=== PATIENT | female | born 1990 | race African-American/Black ===

== ENCOUNTER 2018-05-21 22:09 | Emergency (ER) | payer OTHER ==
[~2018-05-21] VITALS: Ht 167.6 cm; Wt 119.7 kg
[2018-05-21 22:20] VITALS: BP 122/77
--- NOTE | 2018-05-21 22:22 | Emergency Room Report ---
History of Present Illness General Chief Complaint: Asthma Source: Patient Present Illness HPI Patient ran out of her inhaler 3 days ago. Since that time she's been wheezing and coughing. She denies any productive phlegm or fevers or chills. There's no chest pain. She states this is not the worst attack that she's had. She has taken prednisone in the past. Patient denies NVD, dysuria, rashes, headache, neck pain, joint pain, anxiety. Allergies: Coded Allergies: No Known Allergies (Unverified , 05/21/18) Patient History Past Medical History: see triage record Social History: Denies: smoking Social History Narrative from home Last Menstrual Period: 05/11/2018 Now: No : 0 Para: 0 Reviewed Nursing Documentation: PMH: Agreed; PSxH: Agreed Nursing Documentation-PMH Past Medical History: No History, Except For Hx Asthma: Yes Review of Systems All Other Systems: negative except mentioned in HPI Physical Exam Vital Signs Date Time Temp Pulse Resp B/P (MAP) Pulse Ox O2 Delivery O2 Flow Rate FiO2 05/21/18 22:14 97.9 74 16 122/77 97 97.9 Sp02 EP Interpretation: reviewed, normal General Appearance: well appearing, no apparent distress, GCS 15 Head: normocephalic Eyes: bilateral eye normal inspection, bilateral eye PERRL ENT: moist mucus membranes Neck: supple Respiratory: wheezing, expiration, inspiration Cardiovascular #1: regular rate, rhythm Cardiovascular #2: 2+ radial (R) Gastrointestinal: normal inspection, normal bowel sounds, non tender, no mass, non-distended Musculoskeletal: back normal, gait/station normal, normal range of motion, no calf tenderness Neurologic: alert, oriented x3 Psychiatric: mood/affect normal Skin: normal inspection, warm/dry Medical Decision Making Diagnostic Impression: Primary Impression: Asthma Qualified Codes: J45.41 - Moderate persistent asthma with (acute) exacerbation ER Course Patient presents with wheezing. Differential includes asthma exacerbation, upper respiratory infection. Her exam is against this being pneumonia. She'll be treated with breathing treatments and prednisone reevaluated. At this time x -rays are not indicated however she needs to have reevaluation. After one breathing treatment the patient is clear. Three had been ordered however she refused and it's not necessary at this time. Discussed with patient treatment plan. Patient stable for outpatient observation and treatment. Rhythm Strip Diag. Results EP Interpretation: yes Rhythm: NSR, no PVC's, no ectopy Last Vital Signs Date Time Temp Pulse Resp B/P (MAP) Pulse Ox O2 Delivery O2 Flow Rate FiO2 05/21/18 23:27 97.4 84 18 128/79 97 Room Air 21 97.4 Status: improved Disposition: HOME, SELF-CARE Condition: Improved Scripts Beclomethasone Dipropionate 40MCG Oral Inh (QVAR 40*) 7.3 Gm Aer.w.adap 2 PUFFS INH TWICE A DAY, #1 GM 0 Refills Prov: Barrno Francois M.D. 05/21/18 Prednisone* (PREDNISONE*) 20 Mg Tablet 40 MG ORAL DAILY, #6 TAB Prov: Barron Francois M.D. 05/21/18 Albuterol Sulfate* (ALBUTEROL SULFATE MDI*) 8.5 Gm Hfa.aer.ad 2 PUFF INH Q6H, #1 EA 1 Refill Prov: Barron Francois M.D. 05/21/18 Barron Francois M.D. May 21, 2018 22:22
[2018-05-21] MEDS ORDERED: Albuterol ud Inhalation HHN SCH (22:30)
[2018-05-21] MEDS ORDERED: Ipratropium 0.02% Inh Soln 2.5ml UD HHN ONE (22:30)
[2018-05-21] MEDS ORDERED: QVAR7.3 GM INH (23:08)
[2018-05-21] MEDS ORDERED: PREDNISONE20 MG ORAL (23:08)
[2018-05-21] MEDS ORDERED: ALBUTEROL SULF8.5 GM INH (23:08)
[2018-05-21 23:23] VITALS: BP 128/79
[2018-05-21 23:27] VITALS: BP 128/79
== END 2018-05-21 23:33 | disposition home or self-care (01) ==
LOC: EMR 22:48
DX: J45.41 Moderate persistent asthma with (acute) exacerbation (principal)
CPT/HCPCS: 94640; 94664; 99284; J7512

== ENCOUNTER 2018-06-29 22:13 | Emergency (ER) | payer OTHER ==
[~2018-06-29] VITALS: Ht 175.3 cm; Wt 90.7 kg
[~2018-06-29 22:13] MED LIST: ALBUTEROL SULF8.5 GM INH; PREDNISONE20 MG ORAL; QVAR7.3 GM INH
[2018-06-29 22:30] VITALS: BP 144/78
[2018-06-29] MEDS ORDERED: Albuterol ud Inhalation HHN ONE ×2 (22:30→23:30)
[2018-06-29] MEDS ORDERED: Ipratropium 0.02% Inh Soln 2.5ml UD HHN ONE (22:30)
--- NOTE | 2018-06-29 22:59 | Emergency Room Report ---
History of Present Illness General Chief Complaint: Dyspnea/Respdistress Source: Patient Present Illness HPI Is a 28-year-old female with a history of asthma. She presents with chief complaint of asthma exacerbation. Onset today. Hard time breathing. Her albuterol not helping. No fever chills but no nausea no vomiting. Worse with walking. Worse with inspiration. Coughing but nonproductive in nature. Allergies: Coded Allergies: No Known Allergies (Unverified , 05/21/18) Patient History Past Medical History: see triage record, old chart reviewed, asthma Past Surgical History: none Pertinent Family History: none Social History: Denies: smoking Last Menstrual Period: n/a Now: No Immunizations: other Reviewed Nursing Documentation: PMH: Agreed; PSxH: Agreed Nursing Documentation-PMH Past Medical History: No History, Except For Hx Asthma: Yes Review of Systems Eye: Denies: eye pain, blurred vision ENT: Denies: ear pain, nose congestion, throat swelling Respiratory: Reports: cough, shortness of breath, wheezing Cardiovascular: Denies: chest pain, palpitations Gastrointestinal: Denies: abdominal pain, diarrhea, nausea, vomiting Musculoskeletal: Denies: back pain, joint pain Skin: Denies: rash Neurological: Denies: headache, numbness Endocrine: Denies: increased thirst, increased urine Hematologic/Lymphatic: Denies: easy bruising All Other Systems: negative except mentioned in HPI Physical Exam Vital Signs Date Time Temp Pulse Resp B/P (MAP) Pulse Ox O2 Delivery O2 Flow Rate FiO2 06/29/18 22:29 26 100 Simple Mask 4.0 06/29/18 22:30 84 21 vitals unremarkable Sp02 EP Interpretation: reviewed, normal General Appearance: well appearing, alert, moderate distress Head: normocephalic, atraumatic Eyes: bilateral eye PERRL, bilateral eye EOMI ENT: hearing grossly normal, normal pharynx Neck: full range of motion, supple, no meningismus Respiratory: chest non-tender, respiratory distress, decreased breath sounds, accessory muscle use, wheezing Cardiovascular #1: regular rate, rhythm, no murmur Gastrointestinal: normal bowel sounds, non tender, no mass, no organomegaly, no bruit, non-distended Musculoskeletal: back normal, gait/station normal, normal range of motion Psychiatric: mood/affect normal Skin: warm/dry Medical Decision Making Diagnostic Impression: Primary Impression: Asthma with acute exacerbation Qualified Codes: J45.901 - Unspecified asthma with (acute) exacerbation ER Course Patient presents with asthma exacerbation. Initially she was tight and after one treatment she opened up and was wheezing more. After pretreatment, wheezing resolved. She also received prednisone here and also magnesium sulfate. She felt much better. We'll discharge home. X-rays negative for infection Rhythm Strip Diag. Results EP Interpretation: yes Rate: 98 Rhythm: NSR, no PVC's, no ectopy Chest X-Ray Diagnostic Results Chest X-Ray Diagnostic Results : Chest X-Ray Ordered: Yes # of Views/Limited/Complete: 1 View Indication: Shortness of Breath EP Interpretation: Yes Interpretation: no consolidation, no effusion, no pneumothorax, no acute cardiopulmonary disease Impression: No acute disease Electronically Signed by: Alexys Bullard MD Last Vital Signs Date Time Temp Pulse Resp B/P (MAP) Pulse Ox O2 Delivery O2 Flow Rate FiO2 06/29/18 22:39 88 20 99 Room Air 21 06/29/18 22:29 4.0 Status: improved Disposition: HOME, SELF-CARE Condition: Stable Scripts Prednisone* (PREDNISONE*) 20 Mg Tablet 40 MG ORAL DAILY, #8 TAB Prov: Alexys Bullard MD 06/30/18 Albuterol Sulfate* (ALBUTEROL SULFATE MDI*) 8.5 Gm Hfa.aer.ad 2 PUFF INH Q4H PRN for cough/wheezing, #1 EA 0 Refills Prov: Alexys Bullard MD 06/30/18 Additional Instructions: Follow-up with your DrUrsula in 2 to 3 days. Return if symptom worsen. Alexys Bullard MD Jun 29, 2018 22:59
[2018-06-30 01:13] LABS: BASOPHILS % (AUTO) 0.8 % (0.0-2.0); HEMOGLOBIN 12.6 G/DL (12.0-16.0); LYMPHOCYTES % (AUTO) 11.2 % (20.0-45.0); MEAN CORPUSCULAR VOLUME 93 FL (80-99); MONOCYTES % (AUTO) 6.2 % (1.0-10.0); PLATELET COUNT 258 K/UL (150-450); WHITE BLOOD COUNT 11.3 K/UL (4.8-10.8)
[2018-06-30 01:22] LABS: ANION GAP 9 mmol/L (5-15); BLOOD UREA NITROGEN 13 mg/dL (7-18); CALCIUM 8.9 MG/DL (8.5-10.1); CARBON DIOXIDE 27 MMOL/L (21-32); CHLORIDE 105 MMOL/L (98-107); POTASSIUM 3.2 MMOL/L (3.5-5.1); SODIUM 141 MMOL/L (136-145)
[2018-06-30] MEDS ORDERED: Albuterol ud Inhalation HHN ONE (01:45)
[2018-06-30] MEDS ORDERED: PREDNISONE20 MG ORAL (02:33)
[2018-06-30] MEDS ORDERED: ALBUTEROL SULF8.5 GM INH (02:33)
[2018-06-30 03:05] VITALS: BP 125/61
--- NOTE | 2018-06-30 12:52 | Diagnostic Imaging Report ---
Indication: Shortness of breath Technique: XRAY Chest 1v Comparison: None Findings: Heart size and mediastinal contours are within normal limits for AP technique. There is no focal consolidation, pneumothorax or pleural effusion. Osseous structures demonstrate no acute abnormality. Impression: No radiographic evidence of acute cardiopulmonary disease.
== END 2018-06-30 03:05 | disposition home or self-care (01) ==
LOC: EMR 23:10
DX: J45.901 Unspecified asthma with (acute) exacerbation (principal)
CPT/HCPCS: 36415; 71045; 80048; 85025; 94640; 94664; 99284; J7512

== ENCOUNTER 2019-07-02 07:06 | Emergency (ER) | payer OTHER ==
[~2019-07-02] VITALS: Ht 167.6 cm; Wt 119.3 kg
[2019-07-02 07:29] VITALS: BP 129/90
--- NOTE | 2019-07-02 07:29 | NUR ---
bdED Nurse Note: Pt aaox4, vss, no acute distress. Pt states pain is 10/10 in her upper ABD. No skin issues. Pt is cooperative other then refusing to give urine sample. MD with PT. Hypoactive bowel sounds. Pt c/o n/v with clear and yellow vomit.
--- NOTE | 2019-07-02 07:35 | Emergency Room Report ---
History of Present Illness General Chief Complaint: Abdominal Pain Source: Patient, Medical Record Present Illness HPI Patient presents with complaints of epigastric and right upper quadrant abdominal pain reports that she was at another hospital yesterday after receiving an injection [place] better Does not recall what she was told regarding the pain or what the source of the pain was she reports that earlier today she ate and after eating again the pain worsened denies any fevers or chills denies any chest pain patient is tearful and crying at bedside However able to provide appropriate history at this time denies any diarrhea denies any lower abdominal pain denies any rash Allergies: Coded Allergies: No Known Allergies (Unverified , 05/21/18) Patient History Past Medical History: see triage record Last Menstrual Period: 06/16/2019 Reviewed Nursing Documentation: PMH: Agreed; PSxH: Agreed Nursing Documentation-PMH Past Medical History: No History, Except For Hx Asthma: Yes Review of Systems All Other Systems: negative except mentioned in HPI Physical Exam Vital Signs Date Time Temp Pulse Resp B/P (MAP) Pulse Ox O2 Delivery O2 Flow Rate FiO2 07/02/19 07:21 98.1 70 16 133/78 (96) 96 Room Air Sp02 EP Interpretation: reviewed, normal General Appearance: mild distress - Tearful Head: normocephalic, atraumatic Eyes: bilateral eye PERRL, bilateral eye EOMI ENT: hearing grossly normal, EOM grossly intact Neck: supple Respiratory: lungs clear, no respiratory distress, no retraction Cardiovascular #1: regular rate, rhythm Gastrointestinal: non tender - On palpation however subjectively points to right upper quadrant, soft Genitourinary: no CVA tenderness Musculoskeletal: normal inspection Neurologic: alert Skin: no rash Lymphatic: normal inspection Medical Decision Making Diagnostic Impression: Primary Impression: Abdominal pain ER Course With the history exam and presentation, multiple differentials considered, including but not limited to appendicitis, gastritis, cholecystitis, diverticulitis Patient's blood work at baseline levels patient was initially provided oral medication and IM injection However continued to be tearful and complains of pain Therefore patient was provided with IM injection of Dilaudid and CT imaging was initiated CT imaging is also normal at repeat evaluation patient is now At baseline status has resolved completely with any discomfort At the time of disposition patient reports that she needs [place] [facility] [place] She is instructed that she is not allowed to drive Labs Test 07/02/19 08:01 07/02/19 09:25 White Blood Count 7.6 K/UL (4.8-10.8) Red Blood Count 4.41 M/UL (4.20-5.40) Hemoglobin 14.0 G/DL (12.0-16.0) Hematocrit 40.9 % (37.0-47.0) Mean Corpuscular Volume 93 FL (80-99) Mean Corpuscular Hemoglobin 31.9 PG (27.0-31.0) Mean Corpuscular Hemoglobin Concent 34.3 G/DL (32.0-36.0) Red Cell Distribution Width 12.5 % (11.6-14.8) Platelet Count 314 K/UL (150-450) Mean Platelet Volume 5.8 FL (6.5-10.1) Neutrophils (%) (Auto) 75.0 % (45.0-75.0) Lymphocytes (%) (Auto) 17.6 % (20.0-45.0) Monocytes (%) (Auto) 5.8 % (1.0-10.0) Eosinophils (%) (Auto) 0.5 % (0.0-3.0) Basophils (%) (Auto) 1.1 % (0.0-2.0) Sodium Level 138 MMOL/L (136-145) Potassium Level 3.7 MMOL/L (3.5-5.1) Chloride Level 103 MMOL/L (98-107) Carbon Dioxide Level 29 MMOL/L (21-32) Anion Gap 6 mmol/L (5-15) Blood Urea Nitrogen 13 mg/dL (7-18) Creatinine 1.1 MG/DL (0.55-1.30) Estimat Glomerular Filtration Rate > 60 mL/min (>60) Glucose Level 100 MG/DL (74-106) Calcium Level 9.1 MG/DL (8.5-10.1) Total Bilirubin 0.5 MG/DL (0.2-1.0) Aspartate Amino Transf (AST/SGOT) 19 U/L (15-37) Alanine Aminotransferase (ALT/SGPT) 22 U/L (12-78) Alkaline Phosphatase 74 U/L (46-116) Total Protein 8.2 G/DL (6.4-8.2) Albumin 4.0 G/DL (3.4-5.0) Globulin 4.2 g/dL Albumin/Globulin Ratio 1.0 (1.0-2.7) Lipase 64 U/L (73-393) Urine HCG, Qualitative Negative (NEGATIVE) Urine Opiates Screen Negative (NEGATIVE) Urine Barbiturates Screen Negative (NEGATIVE) Phencyclidine (PCP) Screen Negative (NEGATIVE) Urine Amphetamines Screen Negative (NEGATIVE) Urine Benzodiazepines Screen Negative (NEGATIVE) Urine Cocaine Screen Negative (NEGATIVE) Urine Marijuana (THC) Screen Positive (NEGATIVE) CT/MRI/US Diagnostic Results CT/MRI/US Diagnostic Results : Impression CT abdomen pelvisImpression: Limited assessment of the GI tract, due to lack of enteric contrast administration No acute or significant abnormality demonstrated Last Vital Signs Date Time Temp Pulse Resp B/P (MAP) Pulse Ox O2 Delivery O2 Flow Rate FiO2 07/02/19 07:21 98.1 70 16 133/78 (96) 96 Room Air Status: improved Disposition: HOME, SELF-CARE Condition: Improved Scripts Acetaminophen (Tylenol) 325 Mg Tablet 325 MG ORAL Q8HR PRN for Prn Pain/Headache/Temp > 101, #15 TAB 0 Refills Prov: Marta Mancini DO 07/02/19 Famotidine* (Pepcid 20mg tablet*) 20 Mg Tablet 20 MG ORAL DAILY, #15 TAB 0 Refills Prov: Marta Mancini DO 07/02/19 Referrals: NON PHYSICIAN (PCP) Additional Instructions: Patient is provided with the discharge instructions notified to follow up with primary doctor in the next 2-3 days otherwise return to the er with any worsening symptoms. Please note that this report is being documented using [employer]. This can lead to erroneous entry secondary to incorrect interpretation by the dictating instrument. Marta Mancini DO Jul 02, 2019 07:35
[2019-07-02] MEDS ORDERED: HYDROcodone/Acetamin 10/325 tab ORAL ONE (07:45)
--- NOTE | 2019-07-02 07:57 | NUR ---
ED Nurse Note: Pt ambulated to the bathroom. Pt refuses to provide urine.
--- NOTE | 2019-07-02 08:10 | NUR ---
ED Nurse Note: Bloodwork set to lab.
[2019-07-02] MEDS ORDERED: Ketorolac 60mg Inj IM ONE (08:30)
[2019-07-02] MEDS ORDERED: LORazepam 1mg tab ORAL ONE (08:30)
[2019-07-02 08:33] VITALS: BP 111/90
--- NOTE | 2019-07-02 08:36 | NUR ---
ED Nurse Note: Pt is restless and yelling 'help me! help me!" and "ouch". Pt is alert and asking for her breathing tx.
[2019-07-02 08:42] LABS: ANION GAP 6 mmol/L (5-15); BLOOD UREA NITROGEN 13 mg/dL (7-18); CALCIUM 9.1 MG/DL (8.5-10.1); CARBON DIOXIDE 29 MMOL/L (21-32); CHLORIDE 103 MMOL/L (98-107); CREATININE 1.1 MG/DL (0.55-1.30); POTASSIUM 3.7 MMOL/L (3.5-5.1); SODIUM 138 MMOL/L (136-145)
--- NOTE | 2019-07-02 08:44 | NUR ---
ED Nurse Note: RT called.
[2019-07-02] MEDS ORDERED: Albuterol ud Inhalation HHN ONE (08:45)
[2019-07-02 08:46] LABS: ALANINE AMINOTRANSFERASE 22 U/L (12-78); ALKALINE PHOSPHATASE 74 U/L (46-116); ASPARTATE AMINO TRANSFERASE 19 U/L (15-37); BILIRUBIN,TOTAL 0.5 MG/DL (0.2-1.0)
[2019-07-02 08:56] LABS: BASOPHILS % (AUTO) 1.1 % (0.0-2.0); EOSINOPHILS % (AUTO) 0.5 % (0.0-3.0); HEMATOCRIT 40.9 % (37.0-47.0); LYMPHOCYTES % (AUTO) 17.6 % (20.0-45.0); MEAN CORPUSCULAR VOLUME 93 FL (80-99); MONOCYTES % (AUTO) 5.8 % (1.0-10.0); PLATELET COUNT 314 K/UL (150-450); RED BLOOD COUNT 4.41 M/UL (4.20-5.40); RED CELL DISTRIBUTION WIDTH 12.5 % (11.6-14.8); WHITE BLOOD COUNT 7.6 K/UL (4.8-10.8)
--- NOTE | 2019-07-02 09:02 | NUR ---
RESPIRATORY NOTE: administered breathing tx, pt removed tx and stated "i dont want it, my stomach hurts too much. i cannot concentrate" RN made aware.
[2019-07-02] MEDS ORDERED: HYDROmorphone 1mg/ml Carpuject IM ONE (09:15)
--- NOTE | 2019-07-02 09:16 | NUR ---
ED Nurse Note:pt. c/o of increasing abdominal pain, was given pain med IM and moved to private room
--- NOTE | 2019-07-02 09:50 | NUR ---
ED Nurse Note:pt. had abdominal CT done and urine was sent to labs
--- NOTE | 2019-07-02 10:02 | Diagnostic Imaging Report ---
Indication: Abdominal pain, epigastric and right upper quadrant pain Technique: Spiral acquisitions obtained through the abdomen and pelvis. No oral contrast utilized, per emergency room physician request No IV contrast utilized, per referring physician request.. Multiplanar reconstructions were generated. Total dose length product 1310 mGycm. CTDIvol(s) 23 mGy. Dose reduction achieved using automated exposure control Comparison: None Findings: There is slight image degradation due to image noise related to patient body habitus. Lack of enteric contrast limits assessment of the GI tract. The appendix is normal. Is no evidence of colonic diverticulosis or diverticulitis. No small bowel distention. No free or loculated intraperitoneal gas or fluid. Distal esophagus, stomach, duodenum are unremarkable. Lack of IV contrast limits assessment of the solid organs. The liver, gallbladder, bile ducts, pancreas, spleen, adrenals, kidneys are unremarkable. No retroperitoneal or mesenteric mass or adenopathy. No pelvic mass or adenopathy. Uterus and ovaries are unremarkable. The included lung bases are clear. The bones are unremarkable. Impression: Limited assessment of the GI tract, due to lack of enteric contrast administration No acute or significant abnormality demonstrated The CT scanner at [facility] is accredited by the [employer] and the scans are performed using protocols designed to limit radiation exposure to as low as reasonably achievable to attain images of sufficient resolution adequate for diagnostic evaluation.
[2019-07-02 10:20] VITALS: BP 115/88
[2019-07-02] MEDS ORDERED: TYLENOL325 MG ORAL (10:24)
[2019-07-02] MEDS ORDERED: FAMOTIDINE20 MG ORAL (10:24)
[2019-07-02 10:30] VITALS: BP 115/88
--- NOTE | 2019-07-02 10:30 | NUR ---
ER DISCHARGE NOTE: Patient is cleared to be discharged per ERMD, pt is aox4, on room air, with stable vital signs. pt was given dc and prescription instructions, pt was able to verbalize understanding. pt is able to ambulate with steady gait. pt took all belongings.
== END 2019-07-02 10:30 | disposition home or self-care (01) ==
LOC: EMR 07:28
DX: R10.13 Epigastric pain (principal); R10.11 Right upper quadrant pain
CPT/HCPCS: 36415; 74176; 80053; 80307; 81025; 83690; 85025; 94640; 94664; 96372; J1170; Z7502; 99284

== ENCOUNTER 2019-07-06 10:29 | Emergency (ER) | payer OTHER ==
[~2019-07-06] VITALS: Ht 167.6 cm; Wt 117.9 kg
[~2019-07-06 10:29] MED LIST changes: +FAMOTIDINE20 MG ORAL; +TYLENOL325 MG ORAL
[2019-07-06 10:40] VITALS: BP 136/61
--- NOTE | 2019-07-06 10:40 | NUR ---
ED Nurse Note: Patient ambulated to the ER with a c/o of epigastric pain x 1 week with n/v and no diarrhea. Patient has a pain score of 10/10. patient facial grimacing, and holding the site. Patient AAOx4, No respiratory distress noted.
--- NOTE | 2019-07-06 10:50 | NUR ---
ED Nurse Note: Patient connected to the monitor worker. Patient refused to be on the blood pressure cuff.
--- NOTE | 2019-07-06 11:01 | NUR ---
ED Nurse Note: JUANPABLO Way is at bedside.
[2019-07-06] MEDS ORDERED: Haloperidol Lactate 5 MG in D5W 55 ML IVPB ONE (11:15)
--- NOTE | 2019-07-06 11:30 | Emergency Room Report ---
History of Present Illness General Chief Complaint: Abdominal Pain Source: Patient Present Illness HPI Patient is a 29-year-old female presents after increased epigastric pain. Was having multiple episodes of vomiting. She states she is somewhat constipated. She does report passing gas. She states she had previous emergency department visits for similar symptoms in the past. She states she smokes marijuana daily. She was reporting having nonbilious emesis. Nonbloody. Denies any fever. Denies any recent trauma. Denies being . Allergies: Coded Allergies: No Known Allergies (Unverified , 05/21/18) Patient History Past Medical History: see triage record Last Menstrual Period: 06/16/19 Reviewed Nursing Documentation: PMH: Agreed; PSxH: Agreed Nursing Documentation-PM Past Medical History: No Stated History Hx Asthma: Yes Review of Systems All Other Systems: negative except mentioned in HPI Physical Exam Vital Signs Date Time Temp Pulse Resp B/P (MAP) Pulse Ox O2 Delivery O2 Flow Rate FiO2 07/06/19 10:33 97.5 64 15 136/61 (86) 96 Room Air Sp02 EP Interpretation: reviewed, normal General Appearance: normal inspection, well appearing, no apparent distress, alert, GCS 15, obese Head: atraumatic ENT: normal ENT inspection, hearing grossly normal, normal voice Neck: normal inspection, full range of motion, supple, no bony tend Respiratory: normal inspection, lungs clear, normal breath sounds, no respiratory distress, no retraction, no wheezing Cardiovascular #1: regular rate, rhythm, no edema Gastrointestinal: soft Genitourinary: no CVA tenderness Musculoskeletal: normal inspection, back normal, normal range of motion Neurologic: alert, motor strength/tone normal, senior php developer III-XII nml as tested, responsive, speech normal, normal inspection Psychiatric: normal inspection, judgement/insight normal, mood/affect normal Medical Decision Making Diagnostic Impression: Primary Impression: Abdominal pain Additional Impression: Hyperemesis ER Course Patient presented for abdominal pain. Differential diagnosis include was not to marijuana hyperemesis, gastroenteritis, ulcer among others. Because of patient's complexity laboratory studies were ordered. Patient was noted to have recent CT imaging which did not show any evidence of any acute findings. Patient was given IV fluids as well as IV Haldol for likely marijuana hyperemesis given the patient's chronic daily use of marijuana. This did not seem to relieve the patient's pain and she was subsequently given IV Benadryl. She seemed to have market improvement with topical capsaicin. Patient subsequently stated she felt better want to leave the hospital. Patient was advised to discontinue marijuana use. Patient's laboratory studies were essentially unremarkable. Patient was advised to return if she began having worsening condition or other concerns. Labs Test 07/06/19 11:30 07/06/19 14:25 White Blood Count 9.4 K/UL (4.8-10.8) Red Blood Count 4.66 M/UL (4.20-5.40) Hemoglobin 14.5 G/DL (12.0-16.0) Hematocrit 43.8 % (37.0-47.0) Mean Corpuscular Volume 94 FL (80-99) Mean Corpuscular Hemoglobin 31.2 PG (27.0-31.0) Mean Corpuscular Hemoglobin Concent 33.2 G/DL (32.0-36.0) Red Cell Distribution Width 12.7 % (11.6-14.8) Platelet Count 363 K/UL (150-450) Mean Platelet Volume 6.1 FL (6.5-10.1) Neutrophils (%) (Auto) 77.9 % (45.0-75.0) Lymphocytes (%) (Auto) 13.5 % (20.0-45.0) Monocytes (%) (Auto) 6.5 % (1.0-10.0) Eosinophils (%) (Auto) 1.3 % (0.0-3.0) Basophils (%) (Auto) 0.9 % (0.0-2.0) Sodium Level 141 MMOL/L (136-145) Potassium Level 3.6 MMOL/L (3.5-5.1) Chloride Level 104 MMOL/L (98-107) Carbon Dioxide Level 26 MMOL/L (21-32) Anion Gap 11 mmol/L (5-15) Blood Urea Nitrogen 10 mg/dL (7-18) Creatinine 1.0 MG/DL (0.55-1.30) Estimat Glomerular Filtration Rate > 60 mL/min (>60) Glucose Level 96 MG/DL (74-106) Calcium Level 9.7 MG/DL (8.5-10.1) Total Bilirubin 0.4 MG/DL (0.2-1.0) Aspartate Amino Transf (AST/SGOT) 19 U/L (15-37) Alanine Aminotransferase (ALT/SGPT) 22 U/L (12-78) Alkaline Phosphatase 79 U/L (46-116) Total Protein 8.3 G/DL (6.4-8.2) Albumin 4.1 G/DL (3.4-5.0) Globulin 4.2 g/dL Albumin/Globulin Ratio 1.0 (1.0-2.7) Lipase 59 U/L (73-393) Urine Opiates Screen Negative (NEGATIVE) Urine Barbiturates Screen Negative (NEGATIVE) Phencyclidine (PCP) Screen Negative (NEGATIVE) Urine Amphetamines Screen Negative (NEGATIVE) Urine Benzodiazepines Screen Negative (NEGATIVE) Urine Cocaine Screen Negative (NEGATIVE) Urine Marijuana (THC) Screen Positive (NEGATIVE) Last Vital Signs Date Time Temp Pulse Resp B/P (MAP) Pulse Ox O2 Delivery O2 Flow Rate FiO2 07/06/19 10:33 97.5 64 15 136/61 (86) 96 Room Air Status: improved Disposition: HOME, SELF-CARE Condition: Stable Scripts Omeprazole (OMEPRAZOLE) 20 Mg Capsule.dr 20 MG ORAL DAILY, #30 CAP Prov: Prakash Way MD 07/06/19 Ondansetron Odt* (ZOFRAN ODT*) 8 Mg Tab.rapdis 8 MG ORAL Q6H PRN for Nausea & Vomiting, #30 TAB Prov: Prakash Way MD 07/06/19 Referrals: NOT CHOSEN IPA/,REFERRING (PCP) Prakash Way MD Jul 06, 2019 11:30
[2019-07-06] MEDS ORDERED: DiphenhydrAMINE 50mg/ml Inj IVP ONE (12:15)
[2019-07-06 12:43] LABS: BASOPHILS % (AUTO) 0.9 % (0.0-2.0); EOSINOPHILS % (AUTO) 1.3 % (0.0-3.0); HEMATOCRIT 43.8 % (37.0-47.0); HEMOGLOBIN 14.5 G/DL (12.0-16.0); LYMPHOCYTES % (AUTO) 13.5 % (20.0-45.0); MEAN CORPUSCULAR VOLUME 94 FL (80-99); MONOCYTES % (AUTO) 6.5 % (1.0-10.0); NEUTROPHILS % (AUTO) 77.9 % (45.0-75.0); PLATELET COUNT 363 K/UL (150-450); RED BLOOD COUNT 4.66 M/UL (4.20-5.40); RED CELL DISTRIBUTION WIDTH 12.7 % (11.6-14.8); WHITE BLOOD COUNT 9.4 K/UL (4.8-10.8)
[2019-07-06 12:48] LABS: ANION GAP 11 mmol/L (5-15); BLOOD UREA NITROGEN 10 mg/dL (7-18); CALCIUM 9.7 MG/DL (8.5-10.1); CARBON DIOXIDE 26 MMOL/L (21-32); CHLORIDE 104 MMOL/L (98-107); POTASSIUM 3.6 MMOL/L (3.5-5.1); SODIUM 141 MMOL/L (136-145)
[2019-07-06 12:59] LABS: ALANINE AMINOTRANSFERASE 22 U/L (12-78); ALBUMIN 4.1 G/DL (3.4-5.0); ALKALINE PHOSPHATASE 79 U/L (46-116); ASPARTATE AMINO TRANSFERASE 19 U/L (15-37); BILIRUBIN,TOTAL 0.4 MG/DL (0.2-1.0)
--- NOTE | 2019-07-06 13:37 | NUR ---
ED Nurse Note: Patient woke up from sleep and c/o pain and asking for pain shot. No N/V noted at this time. ERMD at bedside and made aware. Patient refused VS. Patient states taking blood pressure 'giving her lightheadness'.
[2019-07-06] MEDS ORDERED: Capsaicin 0.075% Cream TOPIC ONE (13:45)
--- NOTE | 2019-07-06 14:00 | NUR ---
ED Nurse Note: PATIENT WENT BACK TO SLEEP. NO FACIAL GRIMACING OR GUARDING NOTED.
[2019-07-06] MEDS ORDERED: ZOFRAN ODT8 MG ORAL (14:21)
[2019-07-06] MEDS ORDERED: OMEPRAZOLE20 M2 ORAL (14:21)
--- NOTE | 2019-07-06 16:33 | NUR ---
ER DISCHARGE NOTE: Patient is cleared to be discharged per ERMD, pt is aox4, on room air, with stable vital signs. pt was given dc and prescription instructions, pt was able to verbalize understanding, pt id band and iv site removed without complications. pt is able to ambulate with steady gait. pt took all belongings.
== END 2019-07-06 16:33 | disposition home or self-care (01) ==
LOC: EMR 10:51
DX: R10.13 Epigastric pain (principal); R11.10 Vomiting, unspecified; J45.909 Unspecified asthma, uncomplicated; F12.90 Cannabis use, unspecified, uncomplicated
CPT/HCPCS: 36415; 80053; 80307; 83690; 85025; 96361; 96374; 96375; J1200; J1630; J7030; S0028; Z7502; 99284